=== PATIENT | male | born 1985 | race African-American/Black ===

== ENCOUNTER 2017-02-17 13:43 | Emergency (ER) | payer OTHER ==
[~2017-02-17] VITALS: Ht 182.9 cm; Wt 102.3 kg
[2017-02-17] MEDS ORDERED: ACET1TAB17 (13:53)
[2017-02-17] MEDS ORDERED: GUAI1SYP8 (13:53)
[2017-02-17] MEDS ORDERED: LORA10TA2 (13:53)
[2017-02-17] MEDS ORDERED: PROAAER10 (13:53)
[2017-02-17] MEDS ORDERED: methylPREDNISolone INJ 125 MG/2 ML VIAL (J2930) IM ONE (15:30)
[2017-02-17] MEDS ORDERED: PRED20TA PO (15:32)
[2017-02-17] MEDS ORDERED: AUGM875T28 PO (15:32)
[2017-02-17] MEDS ORDERED: ALBU17IN2 INH (15:32)
[2017-02-17] MEDS ORDERED: ZOFR4TAB3 PO (15:35)
[2017-02-17] MEDS ORDERED: IPRATROPIUM 0.5MG/ALBUTEROL 2.5MG INH SOL UD 3ML (DUONEB)(J7620) NEB ONE (15:45)
[2017-02-17 16:07] VITALS: BP 122/70
== END 2017-02-17 16:08 | disposition home or self-care (01) ==
LOC: M ED 13:43
DX: J32.9 Chronic sinusitis, unspecified (principal); J45.909 Unspecified asthma, uncomplicated; K52.9 Noninfective gastroenteritis and colitis, unspecified; R50.9 Fever, unspecified; F17.210 Nicotine dependence, cigarettes, uncomplicated
CPT/HCPCS: 94640; 96372; 99282; J2930